=== PATIENT | female | born 1985 | race African-American/Black ===

== ENCOUNTER 2018-01-31 21:03 | Emergency (ER) | payer OTHER ==
--- NOTE | 2018-01-31 21:56 | RAD ---
PA AND LATERAL CHEST X-RAY: 01/31/2018 HISTORY: Productive cough and sore throat for two weeks. Generalized weakness and dizziness. Decreased appet ite. COMPARISON: 08/29/2017 FINDINGS: The cardiac silhouette and pulmonary vasculature are within normal limits. The lungs are clear. The osseous structures are intact. There has been no interval change from the prior exam. IMPRESSION: No acute cardiopulmonary process. POS: [facility]
== END 2018-01-31 22:15 | disposition home or self-care (01) ==
LOC: SCSER 21:03
DX: D57.3 Sickle-cell trait; F41.9 Anxiety disorder, unspecified; E28.2 Polycystic ovarian syndrome; J20.9 Acute bronchitis, unspecified; Z71.6 Tobacco abuse counseling; J45.909 Unspecified asthma, uncomplicated; Z79.899 Other long term (current) drug therapy; F17.210 Nicotine dependence, cigarettes, uncomplicated
CPT/HCPCS: 71046; 99406

== ENCOUNTER 2018-03-05 09:46 | Outpatient (CLI) | payer OTHER ==
--- NOTE | 2018-03-05 12:51 | RAD ---
HYSTEREOSALPINOGRAM: HISTORY: Infertility. The patient has had a history of a prior tubal ligation with reversal. This is to eval uate tube patency. FINDINGS: After informed consent was obtained, the patient was prepped in normal sterile fashion. A catheter w as introduced through the cervical os without difficulty. Contrast injected shows a normal triangula r-shaped uterus which has deviated slightly to the left and slightly anteverted. There is prompt kingston ling of both the fallopian tubes. The ampullary portion of the left tube is slightly serpiginous and borderline dilated, but there is free spillage from the left tube, somewhat delayed but definite onofre e spillage is also seen from the right tube. IMPRESSION: Free spillage from both tubes as described above. POS: [facility]
[2018-03-05] MEDS ORDERED: Iopamidol 300 61% 30 ML VIAL ONE (13:22)
== END 2018-03-05 09:47 | disposition home or self-care (01) ==
LOC: RAD 09:46
PROVIDERS: ATTEND Obstetrics & Gynecology
DX: N97.1 Female infertility of tubal origin (principal)
CPT/HCPCS: 58340; 74740

== ENCOUNTER 2018-06-19 10:29 | Observation (INO) | payer OTHER ==
[2018-06-19] MEDS ORDERED: Ketorolac Tromethamine 30 MG/ML VIAL ONE (11:13)
[2018-06-19 11:34] LABS: #Basophils 0.1 thou/uL (0.0-0.2); #Eosinphils 0.1 thou/uL (0.0-0.7); #Lymphocytes 1.9 thou/uL (1.20-3.40); #Monocytes 0.4 thou/uL (0.11-0.59); #Neutrophils 8.5 thou/uL (1.40-6.50); %Eosinophils 1.2 % (0.0-10.0); %Lymphocytes 16.9 % (21.0-51.0); %Monocytes 3.8 % (0.0-10.0); %Neutrophils 77.1 % (42.0-75.0); Hemoglobin 11.3 g/dL (12.0-16.0); Mean Corpuscular Hemoglobin 24.5 pg (27.0-31.0); Mean Corpuscular Volume 74.2 fL (78.0-98.0); Mean Platelet Volume 10.1 fL (7.4-10.4); Platelet Count 216 thou/uL (130-400); RBC Distribution Width 12.5 % (11.5-14.5); Red Blood Cell (RBC) Count 4.63 mill/uL (4.20-5.40)
[2018-06-19] MEDS ORDERED: Ondansetron HCl/PF 4 MG/2 ML Vial ONE (13:13)
[2018-06-19] MEDS ORDERED: Morphine 4 MG/ML VIAL ONE (13:13)
[2018-06-19 13:28] LABS: ALT (SGPT) 13 U/L (8-55); AST (SGOT) 18 U/L (5-34); Albumin 3.9 g/dL (3.5-5.0); Alkaline Phosphatase 57 U/L (40-150); Anion Gap 12 mmol/L (10-20); BUN (Urea Nitrogen) 6 mg/dL (7.0-18.7); Bilirubin, Total 0.2 mg/dL (0.2-1.2); Calc. Creatinine Clearance 0 mL/min (70-130); Calcium 8.9 mg/dL (7.8-10.44); Carbon Dioxide 21 mmol/L (22-29); Chloride 108 mmol/L (98-107); Estimated GFR-MDRD Greater than 90; Globulin 2.7 g/dL (2.4-3.5); Glucose 88 mg/dL (70-105); Potassium 3.6 mmol/L (3.5-5.1); Protein, Total 6.6 g/dL (6.0-8.3); Sodium 137 mmol/L (136-145)
[2018-06-19] MEDS ORDERED: Ondansetron HCl/PF 4 MG/2 ML Vial IVP PRN (14:15)
--- NOTE | 2018-06-19 14:16 | ULT ---
PELVIC ULTRASOUND: Transabdominal and endovaginal ultrasound of the pelvis performed. INDICATION: Pelvic pain. Recent ultrasound of 06/13/18 revealed evidence of a possible ectopic in the l eft adnexa. The patient is here for followup. FINDINGS: There continues to be free fluid/blood in the cul-de-sac. There continues to be abnormal echogenicit y in the left adnexa measuring approximately 4 x 6 cm. Ectopic remains the diagnosis of exclusion. Endometrial stripe remains mildly prominent measured at 8-10 mm. Ovaries are unremarkable and color Doppler with spectral analysis demonstrates blood flow to both ova nickolas. IMPRESSION: Continued abnormal echogenicity in the left adnexa. Free fluid/blood in the cul-de-sac. Positive HC G. Findings continue to be consistent with ectopic . POS: [facility]
[2018-06-19] MEDS ORDERED: diphenhydrAMINE 50 MG/ML VIAL IVP SCH (14:30)
[2018-06-19] MEDS ORDERED: hydrOXYzine 25 MG TAB PO PRN (14:37)
[2018-06-19] MEDS ORDERED: Lorazepam 1 MG TAB PO SCH (14:45)
[2018-06-19 15:33] VITALS: BMI 27.3
[2018-06-19 16:02] LABS: Hemoglobin 11.7 g/dL (12.0-16.0); Mean Corpuscular HGB CONC 32.9 g/dL (32.0-36.0); Mean Corpuscular Hemoglobin 24.3 pg (27.0-31.0); Mean Corpuscular Volume 73.8 fL (78.0-98.0); Mean Platelet Volume 9.7 fL (7.4-10.4); Platelet Count 228 thou/uL (130-400); RBC Distribution Width 12.8 % (11.5-14.5); Red Blood Cell (RBC) Count 4.83 mill/uL (4.20-5.40); White Blood Cell (WBC) Count 11.2 thou/uL (4.8-10.8)
[2018-06-19] MEDS ORDERED: traMADol HCl 50 MG TAB PO PRN (19:31)
[2018-06-19] MEDS ORDERED: Ibuprofen 800 MG TAB PO PRN (19:31)
[2018-06-19 20:36] VITALS: BP 106/70; TEMP 98.1
[2018-06-19 20:47] LABS: Hemoglobin 11.6 g/dL (12.0-16.0); Mean Corpuscular HGB CONC 33.1 g/dL (32.0-36.0); Mean Corpuscular Hemoglobin 24.4 pg (27.0-31.0); Mean Corpuscular Volume 73.7 fL (78.0-98.0); Mean Platelet Volume 9.9 fL (7.4-10.4); Platelet Count 219 thou/uL (130-400); RBC Distribution Width 12.6 % (11.5-14.5); Red Blood Cell (RBC) Count 4.74 mill/uL (4.20-5.40); White Blood Cell (WBC) Count 10.9 thou/uL (4.8-10.8)
--- NOTE | 2018-06-20 04:48 | DIS ---
DATE OF ENCOUNTER: 06/19/2018 DATE OF ADMISSION: 06/19/2018 DATE OF DISCHARGE: 06/19/2018 ADMITTING DIAGNOSIS: Ectopic with abdominal pain, status post methotrexate. DISCHARGE DIAGNOSIS: Ectopic with abdominal pain, status post methotrexate. PROCEDURE: None. CONSULTATIONS: None. HOSPITAL COURSE: Patient is a 33-year-old female who is day #1 status post methotrexate for medical management of a left tubal . Patient presents with abdominal pain. Upon my evaluation of t he patient in the emergency room, patient had normal vital signs. No peritoneal signs and just some point tenderness in the left adnexa. We discussed surgical versus expectant management and treatment for her pain with serial exams and serial CBCs. Patient opted for expectant management with serial exams, as patient strongly desires to keep her tubes. Through the course of the day, patient has had series of 3 CBC that have all been stable 11.3, 11.7, and 11.6. We have been able to manage her lianet n control with ibuprofen and tramadol. Patient strongly desires discharge this evening. During the course of the day at one point, patient had requested surgical management with removal of her left tu be; however, after reviewing the risks and benefits, patient declined to move forward with her surger y. Her primary OB, Dr. Jennifer Urbano has been involved are aware of the patient's situation and man agement. She has plans on seeing her on Thursday for quantitative HCG drawn and follow up. Vital sign s at the time of discharge, blood pressure 106/70, pulse of 62, temperature 98.1, respiratory rate of 18, satting 98% on room air. In general, she appears to be in no acute distress. She is alert and oriented, cooperative, and pleasant to interact with. Patient denies any pain at this time and is an xious to get home. Patient has follow up with Dr. Urbano on Thursday, which we have emphasized the imp ortance of keeping and which she has agreed to keep. Patient is going home with tramadol 50 mg #12 a nd ibuprofen 800 mg #12.
== END 2018-06-19 20:55 | disposition home or self-care (01) ==
LOC: ERS 10:29 → 3SE 14:33
PROVIDERS: ADMIT Obstetrics & Gynecology; ATTEND Obstetrics & Gynecology
DX: O00.102 Left tubal pregnancy without intrauterine pregnancy (principal)
CPT/HCPCS: 36415; 76856; 80053; 84702; 85025; 86850; 86900; 86901; 96374; 96375; 96376; A4216; G0378; J1200; J1885; J2270; J2405

== ENCOUNTER 2018-06-21 19:09 | Observation (INO) | payer OTHER ==
[2018-06-21] MEDS ORDERED: HYDROcodone/Acetaminophen 5/325 mg Tablet PO PRN ×2 (22:01)
[2018-06-21] MEDS ORDERED: Ondansetron HCl/PF 4 MG/2 ML Vial IVP PRN (22:01)
[2018-06-21] MEDS ORDERED: Zolpidem Tartrate 5 MG TAB PO PRN (22:01)
[2018-06-21] MEDS ORDERED: Famotidine/PF 20 mg/2ml Vial SLOW IVP SCH (22:15)
[2018-06-21 22:31] LABS: #Basophils 0.1 thou/uL (0.0-0.2); #Eosinphils 0.1 thou/uL (0.0-0.7); #Lymphocytes 3.1 thou/uL (1.20-3.40); #Monocytes 0.4 thou/uL (0.11-0.59); #Neutrophils 9.2 thou/uL (1.40-6.50); %Basophils 0.9 % (0.0-1.0); %Eosinophils 0.5 % (0.0-10.0); %Lymphocytes 23.8 % (21.0-51.0); %Monocytes 3.2 % (0.0-10.0); %Neutrophils 71.6 % (42.0-75.0); Hemoglobin 10.6 g/dL (12.0-16.0); Mean Corpuscular HGB CONC 33.7 g/dL (32.0-36.0); Mean Corpuscular Hemoglobin 24.4 pg (27.0-31.0); Mean Corpuscular Volume 72.5 fL (78.0-98.0); Mean Platelet Volume 9.8 fL (7.4-10.4); Platelet Count 228 thou/uL (130-400); RBC Distribution Width 12.3 % (11.5-14.5); Red Blood Cell (RBC) Count 4.35 mill/uL (4.20-5.40); White Blood Cell (WBC) Count 12.9 thou/uL (4.8-10.8)
[2018-06-21] MEDS: Sodium Chloride 0.9% 1,000 ML IV SCH (22:32)
--- NOTE | 2018-06-21 23:18 | HP ---
DATE OF ADMISSION: 06/21/2018 TIME OF SERVICE: 2245 hours. REASON FOR ADMISSION: Left ectopic status, post methotrexate with pain. HISTORY OF PRESENT ILLNESS: Ms. Mayorga is a 33-year-old 3, para 2, AB 0, who had a laparos copic BTL with [facility] by description in 2008 and had a tubal reversal in [facility], in February this year. She presented to [facility] [place] with early and some left-sided pain. Over the course of serial beta hCGs, they were noted to be plateauing with stable hematocrit a nd the diagnosis of left ectopic was made with an adnexal mass, no intrauterine , and a beta hCG of 1800. The patient was given the option for surgical management versus laparoscopic salpingectomy. She declined laparoscopic management at that time, approximately 4 days ago, and rec eived methotrexate at a single dose of 50 mg per meter square. She presented to this hospital over t weekend with pain that remained stable with stable vitals and unchanging hematocrit. She was disc harged home on Thursday. She presented to the office today for repeat beta hCG, which is pending. She did not report any pain at the office today, but instead presented to the [facility] where she reported pain. Ultrasound, as reported to me, from [facility] revealed a small a mount of free fluid consistent with her previous ultrasounds and consistent with 4-6 days post-methot rexate administration with no evidence of ruptured ectopic and a small amount of vaginal bleeding wit h ultrasound findings consistent with a decidual cast. She was transferred to this hospital for furt her care. 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 Denies STD history. PAST MEDICAL HISTORY: Denies. PAST SURGICAL HISTORY: Denies other than tubal ligation and reanastomosis. ALLERGIES: Denies. MEDICATIONS: None except methotrexate. SOCIAL HISTORY: Denies tobacco, alcohol, IV drug abuse. FAMILY HISTORY AND REVIEW OF SYSTEMS: Noncontributory. PHYSICAL EXAMINATION: GENERAL: Black female resting comfortably, despite stating that she has a 7/10 pain. VITAL SIGNS: Her pulse is 62, her respiratory rate is 18, her temperature is 98.1, her blood pressur e is 120/66. HEENT: Within normal limits. LUNGS: Clear to auscultation bilaterally. HEART: Regular rate and rhythm. ABDOMEN: Soft, nontender, nondistended with active bowel sounds in all 4 quadrants. She is distract able and does not have significant guarding or rebound. Vulva is without lesions. Vagina has a smal l amount of blood. Cervical exam is deferred. EXTREMITIES: Without clubbing, cyanosis, or edema. LABORATORY DATA: Hematocrit upon admission tonight is 31.6%, hematocrit has been between 34% and 35% on her previous admissions. The patient has received IV fluids at [facility]. Her white count i s 12.9, which is slightly over what she had over the weekend. Her blood type is O positive. IMPRESSION: Left lower quadrant pain with probable left ectopic , status post methotrexate administration. No evidence of significant hemoperitoneum or ruptured ectopic. PLAN: Discussed with the patient the options. The patient understands that surgery will lead to lap aroscopic salpingectomy. She understands this, and at this point in time desires to proceed forward with it. However, the patient has previously been admitted and been scheduled for surgery and has ch anged her mind. In addition, no signs or symptoms of emergent status is present at this time. We wi ll let the patient have clear liquids until 0300 hours. We will add the patient to the operating alana m schedule for tomorrow, which is full, and anticipate performing laparoscopic left salpingectomy paul orrow afternoon. OB Hospitalist, Dr. Nasra Duran, will be checked out to. This case has been discussed with Dr. Otis negron. Dr. Urbano is unavailable and out of town with a medical appointment tomorrow. We will check a CBC in the a.m.
[2018-06-22 00:10] VITALS: BMI 31.7
[2018-06-22 06:04] LABS: #Eosinphils 0.1 thou/uL (0.0-0.7); #Lymphocytes 2.9 thou/uL (1.20-3.40); #Monocytes 0.3 thou/uL (0.11-0.59); #Neutrophils 5.1 thou/uL (1.40-6.50); %Basophils 0.4 % (0.0-1.0); %Eosinophils 1.2 % (0.0-10.0); %Lymphocytes 33.9 % (21.0-51.0); %Monocytes 3.8 % (0.0-10.0); %Neutrophils 60.7 % (42.0-75.0); Hemoglobin 9.8 g/dL (12.0-16.0); Mean Corpuscular HGB CONC 32.4 g/dL (32.0-36.0); Mean Corpuscular Hemoglobin 23.7 pg (27.0-31.0); Mean Corpuscular Volume 73.1 fL (78.0-98.0); Mean Platelet Volume 9.8 fL (7.4-10.4); Platelet Count 214 thou/uL (130-400); RBC Distribution Width 12.4 % (11.5-14.5); Red Blood Cell (RBC) Count 4.12 mill/uL (4.20-5.40); White Blood Cell (WBC) Count 8.5 thou/uL (4.8-10.8)
--- NOTE | 2018-06-22 07:25 | PRG ---
DATE OF SERVICE: 06/22/2018 TIME OF SERVICE: 0705. SUBJECTIVE: The patient was resting comfortably in the bed. When awaken, she states that her pain i s a 1/10. OBJECTIVE: VITAL SIGNS: Stable with a pulse of 62, blood pressure 115/55, respirations 18, temperature 98.1. LUNGS: Clear to auscultation bilaterally. ABDOMEN: Soft, nontender, no rebound or guarding. She has a small amount of blood on her odessa-pad. EXTREMITIES: Without clubbing, cyanosis or edema. LABORATORY STUDIES: Patient's hematocrit is essentially stable at 30%. It was 31% upon admission night. The patient has been n.p.o. since 0300. ASSESSMENT: Known left ectopic , status post methotrexate administration. The patient appe ars stable and pain has improved. PLAN: Discussed with patient the options. The patient was offered a laparoscopic salpingectomy toda y; however, we discussed that with her low pain level that may be more appropriate, therapy is observ ation. The patient agreed with this. At this time, we will plan on getting an ultrasound later this morning and comparing it to her ultrasound over the weekend. We will leave the patient n.p.o. and w ill keep patient on add-on surgery scheduled for Dr. Duran for possible laparoscopic left salpingec artis.
[2018-06-22] MEDS: Sodium Chloride 0.9% 1,000 ML IV SCH (08:14)
[2018-06-22] MEDS ORDERED: Famotidine/PF 20 mg/2ml Vial SLOW IVP SCH (09:00)
[2018-06-22 10:08] VITALS: BP 127/75; TEMP 98.8
--- NOTE | 2018-06-22 11:53 | ULT ---
ULTRASOUND PELVIC WITH DOPPLER: Date: 06/22/18 HISTORY: Ectopic . Methotrexate. COMPARISON: Multiple prior ultrasounds, most recent 06/19/18. FINDINGS: Mild size increase of left adnexal mass. This may reflect a hemorrhage within an ectopic gi eulalio the methotrexate administration. Large volume free fluid in the pelvis. The uterus measures 8.8 x 4.4 x 4.9 cm. Endometrial thickness is 1.2 cm IMPRESSION: Mild size increase of the likely hemorrhagic ectopic left adnexa with continued large volum e fluid in the pelvic cul-de-sac. POS: [facility]
--- NOTE | 2018-06-22 13:38 | DIS ---
DATE OF ADMISSION: 06/21/2018 DATE OF DISCHARGE: 06/22/2018 DIAGNOSIS: Left ectopic , status post methotrexate. PROCEDURE: Pelvic ultrasound. HOSPITAL COURSE: The patient was admitted on 06/21/2018 after presenting with pain on day 4 followin g methotrexate administration. She was admitted for serial exams, repeat labs, and repeat ultrasound . Her exams, labs, and ultrasound remained stable and her pain improved to 1/10. She was given the option of surgery with a left salpingectomy versus continued expectant management. The patient had a tubal reversal prior to this and would like to continue expectant management at this time. DIET: Regular. ACTIVITIES: Pelvic rest until further notice. MEDICATIONS: The patient was given a prescription for Tylenol No. 3 one tab p.o. q.4-6 hours as need ed for pain, dispense #12. FOLLOWUP: [facility] [place] for repeat hCG level (day 7) on . INSTRUCTIONS: The patient was given strict precautions. She is still to avoid folate containing esequiel ds and supplements. She should return for significant worsening of pain or other concerns.
== END 2018-06-22 12:00 | disposition home or self-care (01) ==
LOC: 3SW 22:00
PROVIDERS: ADMIT Obstetrics & Gynecology; ATTEND Obstetrics & Gynecology
DX: O00.90 Unspecified ectopic pregnancy without intrauterine pregnancy (principal); Z98.890 Other specified postprocedural states; Z79.899 Other long term (current) drug therapy
CPT/HCPCS: 36415; 76856; 84702; 85025; 86850; 86900; 86901; 93976; 96361; 96374; 96376; A4216; G0378; S0028

== ENCOUNTER 2018-07-13 15:18 | Emergency (ER) | payer OTHER ==
[2018-07-13] MEDS ORDERED: Lorazepam 2 MG/ML VIAL ONE (16:27)
[2018-07-13] MEDS ORDERED: Lorazepam 1 MG TAB ONE (16:38)
[2018-07-13 16:43] LABS: BHCG - Serum POSITIVE (NEGATIVE); Pregs Control Background? CLEAR/WHITE (CLR/WHITE); Pregs Control Bar Appear? YES (CONTROL BAR)
[2018-07-13 16:50] LABS: INR-International Normal Ratio 1.2; PTT 33.6 SEC (22.9-36.1); Prothrombin Time 15.1 SEC (12.0-14.7)
[2018-07-13 16:51] LABS: #Basophils 0.1 thou/uL (0.0-0.2); #Eosinphils 0.1 thou/uL (0.0-0.7); #Lymphocytes 2.8 thou/uL (1.20-3.40); #Monocytes 0.4 thou/uL (0.11-0.59); #Neutrophils 6.2 thou/uL (1.40-6.50); %Basophils 1.1 % (0.0-1.0); %Eosinophils 0.8 % (0.0-10.0); %Lymphocytes 29.4 % (21.0-51.0); %Monocytes 4.4 % (0.0-10.0); %Neutrophils 64.4 % (42.0-75.0); Hemoglobin 12.5 g/dL (12.0-16.0); Mean Corpuscular HGB CONC 31.2 g/dL (32.0-36.0); Mean Corpuscular Hemoglobin 23.2 pg (27.0-31.0); Mean Corpuscular Volume 74.3 fL (78.0-98.0); Mean Platelet Volume 10.2 fL (7.4-10.4); Platelet Count 329 thou/uL (130-400); RBC Distribution Width 13.2 % (11.5-14.5); Red Blood Cell (RBC) Count 5.39 mill/uL (4.20-5.40); White Blood Cell (WBC) Count 9.6 thou/uL (4.8-10.8)
[2018-07-13 17:00] LABS: ALT (SGPT) 19 U/L (8-55); AST (SGOT) 20 U/L (5-34); Albumin 4.4 g/dL (3.5-5.0); Alkaline Phosphatase 64 U/L (40-150); Anion Gap 12 mmol/L (10-20); BUN (Urea Nitrogen) 10 mg/dL (7.0-18.7); Bilirubin, Total 0.4 mg/dL (0.2-1.2); Calc. Creatinine Clearance 0 mL/min (70-130); Calcium 9.5 mg/dL (7.8-10.44); Carbon Dioxide 22 mmol/L (22-29); Chloride 105 mmol/L (98-107); Estimated GFR-MDRD Greater than 90; Globulin 3.4 g/dL (2.4-3.5); Glucose 84 mg/dL (70-105); Potassium 4.1 mmol/L (3.5-5.1); Protein, Total 7.8 g/dL (6.0-8.3); Sodium 135 mmol/L (136-145)
== END 2018-07-13 18:46 | disposition home or self-care (01) ==
LOC: ERS 15:18
DX: N93.9 Abnormal uterine and vaginal bleeding, unspecified (principal); F41.9 Anxiety disorder, unspecified
CPT/HCPCS: 36415; 80053; 84702; 84703; 85025; 85610; 85730; 86850; 86900; 86901; 99284; J2060

== ENCOUNTER 2018-07-21 00:36 | Emergency (ER) | payer OTHER ==
[2018-07-21 01:17] LABS: Mean Corpuscular HGB CONC 32.3 g/dL (32.0-36.0); Mean Corpuscular Hemoglobin 23.8 pg (27.0-31.0); Mean Corpuscular Volume 73.9 fL (78.0-98.0); Mean Platelet Volume 10.5 fL (7.4-10.4); Platelet Count 274 thou/uL (130-400); RBC Distribution Width 12.9 % (11.5-14.5); Red Blood Cell (RBC) Count 4.63 mill/uL (4.20-5.40); White Blood Cell (WBC) Count 15.9 thou/uL (4.8-10.8)
[2018-07-21 01:32] LABS: Eosinophils 1 % (0-10); Hypochromia SLIGHT = 6-15 cells (100X) (0-5/hpf); Lymphocytes 14 % (21-51); MDiff Complete? YES; Monocytes 3 % (0-10); Neutrophil 82 % (42-75); PLT Morphology Comment Appears Adequate
[2018-07-21 01:38] LABS: ALT (SGPT) Less than 7 U/L (8-55); AST (SGOT) 14 U/L (5-34); Albumin 4.1 g/dL (3.5-5.0); Alkaline Phosphatase 61 U/L (40-150); Anion Gap 11 mmol/L (10-20); BUN (Urea Nitrogen) 12 mg/dL (7.0-18.7); Bilirubin, Total 0.3 mg/dL (0.2-1.2); CK (CPK) 93 U/L (29-168); Calc. Creatinine Clearance 0 mL/min (70-130); Calcium 9.2 mg/dL (7.8-10.44); Carbon Dioxide 21 mmol/L (22-29); Chloride 108 mmol/L (98-107); Estimated GFR-MDRD 84; Globulin 2.8 g/dL (2.4-3.5); Glucose 99 mg/dL (70-105); Potassium 3.8 mmol/L (3.5-5.1); Protein, Total 6.9 g/dL (6.0-8.3); Sodium 136 mmol/L (136-145)
[2018-07-21 01:42] LABS: CKMB 0.5 ng/mL (0-6.6); Troponin I Less than 0.010 ng/mL (< 0.028)
[2018-07-21 02:00] LABS: Bilirubin Negative (Negative); Blood, Urine Large (Negative); Clarity CLOUDY (Clear); Glucose, Urine (Dipstick) Negative (Negative); Leukocyte Moderate (Negative); Nitrite Negative (Negative); Protein, Urine (Dipstick) Trace mg/dL (Neg-Trace); Urobilinogen 0.2 mg/dL (0.2-1.0); pH, Urine 5.5 (5.0-9.0)
[2018-07-21 02:02] LABS: Bacteria/HPF None Seen HPF (None Seen); Hyaline Casts/LPF 4-6 HYALINE CAST LPF (0-3 Hyaline); Pathc Cast-AUWi Flag 0.58 (0-2.49); WBC/HPF 21-50 HPF (0-3)
[2018-07-21 02:06] LABS: Yeast-AUWi Flag 72.6 (0-25.0)
[2018-07-21 02:17] LABS: RBC/HPF 0-3 HPF (0-3); Yeast-All Forms None Seen HPF (None Seen)
--- NOTE | 2018-07-21 07:49 | RAD ---
AP VIEW CHEST: HISTORY: Chest pain. DATE: 07/21/18. COMPARISON: Comparison is made to previous exam from 08/29/17. FINDINGS: AP view chest demonstrates EKG leads seen over the chest. The lungs are well aerated. No evidence o f active intrathoracic disease is seen. No evidence of effusions, pneumonia, or pneumothorax seen. IMPRESSION: Unremarkable AP view chest. POS: [facility]
--- NOTE | 2018-07-21 17:09 | EKG ---
Test Reason : Blood Pressure : / mmHG Vent. Rate : 065 BPM Atrial Rate : 065 BPM P-R Int : 144 ms QRS Dur : 078 ms QT Int : 392 ms P-R-T Axes : 072 053 048 degrees QTc Int : 407 ms Normal sinus rhythm with sinus arrhythmia Normal ECG Confirmed by MELI AMARO, DR. Ahumada ([id number]) on 07/21/2018 5:09:31 PM Referred By: Confirmed By:DR. Zita GARRISON MD
== END 2018-07-21 02:57 | disposition home or self-care (01) ==
LOC: ERS 00:36
DX: F41.9 Anxiety disorder, unspecified (principal); N39.0 Urinary tract infection, site not specified; Z87.891 Personal history of nicotine dependence
CPT/HCPCS: 36415; 71045; 80053; 81003; 81015; 82553; 84484; 85025; 93005

== ENCOUNTER 2018-09-22 12:22 | Outpatient (CLI) | payer OTHER ==
[2018-09-22 13:58] LABS: BHCG - Serum Negative (NEGATIVE); Pregs Control Bar Appear? YES (CONTROL BAR)
[2018-09-22 13:59] LABS: Pregs Control Background? CLEAR/WHITE (CLR/WHITE)
--- NOTE | 2018-09-22 15:43 | RAD ---
HYSTEROSALPINGOGRAM: 09/22/18 HISTORY: 33-year-old female with history of infertility. Prior left sided ectopic. COMPARISON: 03/05/18. FINDINGS: Following informed consent, the patient was prepped in the usual sterile fashion. A catheter was int roduced through the cervical os. Contrast media was injected into a normal appearing uterine cavity. There was emptying into the right uterine tube which became dilated at approximately the mid portion of the uterine tube. There was some delayed free spillage on the right side. On the left side, only the first several centimeters of the left uterine tube were normal. The uterin e tube became dilated and there is no definite left sided free spillage. There may well be some locul ated spillage from the uterine tube versus an abnormal somewhat trabeculated markedly dilated distal tube although I favor this to be loculated spill. Uterine cavity appeared normal. IMPRESSION: Bilateral hydrosalpinx, greater on the left side. Delayed free spillage on the right side. No evidenc e of free spillage on the left side. There is an appearance suggesting that of some loculated contras t media emptying from the distal dilated tube versus a markedly dilated abnormal distal tube. POS: [facility]
== END 2018-09-22 12:23 | disposition home or self-care (01) ==
LOC: RAD 12:22
PROVIDERS: ATTEND Student in an Organized Health Care Education/Training Program
DX: Z31.41 Encounter for fertility testing (principal); N70.11 Chronic salpingitis
CPT/HCPCS: 58340; 74740; 84703

== ENCOUNTER 2018-11-09 04:48 | Emergency (ER) | payer OTHER ==
[2018-11-09] MEDS ORDERED: Ketorolac Tromethamine 60 MG/2 ML VIAL ONE (06:04)
[2018-11-09 06:36] LABS: Pregnancy Test - Urine (BHCG) Negative (Negative); Pregu Control Background? CLEAR/WHITE (CLR/WHITE); Pregu Control Bar Appear? YES (CONTROL BAR)
[2018-11-09 06:37] LABS: Bilirubin Negative (Negative); Blood, Urine Negative (Negative); Clarity CLEAR (Clear); Glucose, Urine (Dipstick) Negative (Negative); Leukocyte Negative (Negative); Nitrite Negative (Negative); Protein, Urine (Dipstick) Negative (Neg-Trace); Specific Gravity 1.009 (1.002-1.036); Specific Gravity, Urine 1.009 (1.002-1.036); Urobilinogen 0.2 mg/dL (0.2-1.0); pH, Urine 6.5 (5.0-9.0)
[2018-11-09] MEDS ORDERED: Acetaminophen/Codeine 30-300mg Tablet ONE (07:18)
--- NOTE | 2018-11-09 08:11 | CT ---
CT PELVIS NONCONTRAST: Date: 11/09/18 HISTORY: Fall. Pelvic injury. FINDINGS: The sacrum and hips are intact. Sacroiliac joints and pubic symphysis unremarkable. No displaced frac tures are evident. Lack of contrast limits evaluation of the soft tissues. No free fluid is apparent within the pelvis. IMPRESSION: No acute traumatic injury is demonstrated. POS: [facility]
--- NOTE | 2018-11-09 08:39 | CT ---
CT LUMBAR SPINE WITHOUT CONTRAST: History: Trauma. Pain. Status post fall while getting up to use the restroom this morning. FINDINGS: Five lumbar type vertebral bodies. Lumbar spine vertebral body height is maintained. There is no evid ence of vertebral body fracture. No spondylolisthesis or spondylosis. The limited visualized alimenta ry canal and solid organs are grossly unremarkable. No retroperitoneal mass, lymphadenopathy, or hematoma. Symmetric attenuation of the psoas muscles. Limited evaluation of the contents of the central spinal canal and neural foraminal due to technique. T12-L1: No significant central canal stenosis or foraminal narrowing. L1-2: No significant central canal stenosis or foraminal narrowing. L2-3: No significant central canal stenosis or foraminal narrowing. L3-4: No significant central canal stenosis or foraminal narrowing. L4-5: Generalized disc bulge. Minimal ligamentum flavum thickening resulting in minimal central canal stenosis. Neural foramina are patent. L5-S1: There is a generalized disc bulge with a small central disc protrusion. No significant spinal canal stenosis. Mild bilateral foraminal narrowing. IMPRESSION: No evidence of fracture. POS: [facility]
== END 2018-11-09 08:12 | disposition home or self-care (01) ==
LOC: ERS 04:48
DX: M54.5 Low back pain (principal); F41.9 Anxiety disorder, unspecified; F17.210 Nicotine dependence, cigarettes, uncomplicated; D57.00 Hb-SS disease with crisis, unspecified; Z71.6 Tobacco abuse counseling
CPT/HCPCS: 72131; 72192; 81003; 81025; 87086; 96372; 99406; J1885

== ENCOUNTER 2019-01-07 12:03 | Emergency (ER) | payer OTHER ==
[2019-01-07] MEDS ORDERED: Lorazepam 1 MG TAB ONE (13:18)
== END 2019-01-07 13:25 | disposition home or self-care (01) ==
LOC: ERS 12:03
DX: F43.9 Reaction to severe stress, unspecified (principal); Z71.6 Tobacco abuse counseling; F41.9 Anxiety disorder, unspecified; F17.210 Nicotine dependence, cigarettes, uncomplicated
CPT/HCPCS: 99406

== ENCOUNTER 2019-06-03 09:22 | Day surgery (SDC) | payer OTHER ==
[2019-06-02 10:56] VITALS: BMI 32.1
[2019-06-02 12:23] LABS: Hemoglobin 12.5 g/dL (12.0-16.0); Mean Corpuscular HGB CONC 33.5 g/dL (32.0-36.0); Mean Corpuscular Hemoglobin 24.4 pg (27.0-31.0); Mean Platelet Volume 10.6 fL (7.4-10.4); Platelet Count 252 thou/uL (130-400); RBC Distribution Width 12.9 % (11.5-14.5); Red Blood Cell (RBC) Count 5.13 mill/uL (4.20-5.40); White Blood Cell (WBC) Count 11.2 thou/uL (4.8-10.8)
[2019-06-02 12:28] LABS: BHCG - Serum Negative (NEGATIVE); Pregs Control Background? CLEAR/WHITE (CLR/WHITE); Pregs Control Bar Appear? YES (CONTROL BAR)
[2019-06-03] MEDS ORDERED: Gabapentin 300 MG CAP ONE (10:27)
[2019-06-03] MEDS ORDERED: ceFAZolin Sodium (SDC) 2 GM/100 ML BAG ONE (10:27)
[2019-06-03] MEDS ORDERED: CeleCOXIB 100 MG CAP ONE (10:27)
[2019-06-03] MEDS ORDERED: Famotidine/PF 20 mg/2ml Vial ONE (10:27)
[2019-06-03] MEDS ORDERED: Bupivacaine HCl 0.5%/Epinephrine 1:200,000/PF 30 ml Vial ONE (11:56)
[2019-06-03] MEDS ORDERED: Midazolam HCl 2 mg/2 ml Vial ONE (11:58)
[2019-06-03] MEDS ORDERED: Fentanyl 250 MCG/5 ML VIAL ONE (12:03)
[2019-06-03] MEDS ORDERED: Fentanyl 100 MCG/2 ML VIAL ONE (14:23)
[2019-06-03] MEDS ORDERED: HYDROcodone/Acetaminophen 5/325 mg Tablet ONE (16:03)
--- NOTE | 2019-06-03 16:54 | OP ---
DATE OF PROCEDURE: 06/03/2019 PREOPERATIVE DIAGNOSIS: Left hydrosalpinx. POSTOPERATIVE DIAGNOSES: 1. Left hydrosalpinx. 2. Blocked right fallopian tube. PROCEDURES PERFORMED: Diagnostic laparoscopy, left salpingectomy, and chromotubation. ANESTHESIA: General endotracheal. SALES REPRESENTATIVES SURGEON: None. ESTIMATED BLOOD LOSS: 5 mL. IVF: 1 L of crystalloid. URINE OUTPUT: 200 mL clear urine. PATHOLOGY: Left fallopian tube. COMPLICATIONS: None. DRAINS: None. FINDINGS: Normal size uterus sounded to 8 cm, normal uterine contours, normal appearing cervix. Bilateral ovaries were normal appearing. The right fallopian tube was normal appearing initially; however, on chromotubation, the right fallopian tube did not demonstrate any spillage of blue dye. The left fallopian tube was matted in adhesions and filled with blood. The cul-de-sac and pelvic sidewalls were within normal limits. The upper abdomen was within normal limits as well. DESCRIPTION OF PROCEDURE: The patient was taken to the operating room, where general anesthesia was obtained without difficulty. The patient was prepped and draped in a sterile fashion in the dorsal lithotomy position. A Baird catheter was placed in the bladder. A speculum was placed in the vagina. Anterior lip of the cervix was grasped with single-tooth tenaculum. The uterus was sounded to 8 cm and the diagnostic VCare was placed in the uterus at 7 cm. The speculum was removed. Legs were placed in low lithotomy. Attention was turned to the abdomen. 0.5% Marcaine with epinephrine was infiltrated into the umbilicus. A 5 mm skin incision was made. The Veress needle was passed to the abdomen, noting an opening pressure of 4 mmHg. Pneumoperitoneum was obtained. The 5 mm trocar and camera were passed into the abdomen optically. Deep Trendelenburg was obtained. An 8 mm left lower quadrant port was placed under direct visualization after infiltrating with 0.5% Marcaine with epinephrine and making skin incision. Right lower quadrant 5 mm port was also placed under direct visualization after infiltrating the skin with anesthetic. A grasper was then used to examine the pelvis and upper abdomen and pictures were taken. The LigaSure was then used to come across the left fallopian tube and transect the mesosalpinx with cautery. Hemostasis was noted. A 5 mm bag was passed through the 8 port and the specimen was placed into the bag. At this time, the methylene blue was diluted with saline and tubing was connected to the diagnostic VCare. Chromotubation was performed. 100 mL of dilute methylene blue was used to pass into the uterus. The right fallopian tube was noted to swell with the blue dye. However, the distal-most portion of the fallopian tube was blocked likely with adhesions from the patient's prior tubal surgery. Upon even squeezing the fallopian tube and allowing delayed spillage, there was no spillage of the dye during that time after careful examination. The pelvis was then irrigated and suctioned. A low-pressure check was performed. Hemostasis was noted. The bag was then removed out of the abdomen through the 8 port and all instruments removed out of the abdomen. Pneumoperitoneum was released. The skin was closed with 4-0 Monocryl in a subcuticular fashion. Dermabond was applied. The diagnostic VCare was removed out of the vagina and hemostasis was noted. All instruments were removed out of the vagina. The patient tolerated the procedure well. Sponge and needle counts correct x2. The patient was taken to recovery room in stable condition. The patient had a Baird discontinued prior to procedure conclusion and received Ancef 2 g prior to the procedure. Job ID: [id number]
== END 2019-06-03 16:55 | disposition home or self-care (01) ==
LOC: SDC 09:22
PROVIDERS: ATTEND Student in an Organized Health Care Education/Training Program
PROC: 0UT64ZZ Resection of Left Fallopian Tube, Percutaneous Endoscopic Approach (ICD-10-PCS; principal; 2019-06-03)
DX: N70.11 Chronic salpingitis (principal); Z87.891 Personal history of nicotine dependence
CPT/HCPCS: 84703; 85027; 86850; 86900; 86901; 88305; J0131; J0670; J0690; J2250; J3010; Q9968; S0028

== ENCOUNTER 2019-06-21 17:10 | Emergency (ER) | payer OTHER ==
[~2019-06-21 17:10] MED LIST: ISOVUE-370 76%-LOCM 1 ML ONE
[2019-06-21] MEDS ORDERED: Ketorolac Tromethamine 30 MG/ML VIAL ONE (17:34)
--- NOTE | 2019-06-21 19:02 | CT ---
CT Neck Soft Tissue W Con History: Mass in neck. Comparison: None. Findings: Globes are normal. Trachea is midline. No extrinsic mass effect. Epiglottis is normal. Aryepiglottic folds are normal. Mild hyperenhancement of the nasopharyngeal tonsils with mucous blocking the nasopharyngeal passagewa y. No cervical adenopathy. Lung apices are clear. Impression: Mild hyperenhancement of the inflamed nasopharyngeal tonsils with mucous blocking the aguilar opharyngeal airway. No palate seen tonsil abscess.
== END 2019-06-21 20:03 | disposition left against medical advice (07) ==
LOC: ERS 17:10
DX: R07.0 Pain in throat (principal); F17.210 Nicotine dependence, cigarettes, uncomplicated
CPT/HCPCS: 70491; 96374; J1885; Q9966

== ENCOUNTER 2019-06-30 07:41 | Outpatient (CLI) | payer OTHER ==
--- NOTE | 2019-06-30 09:13 | ULT ---
THYROID ULTRASOUND: Date: 06/30/19 INDICATION: Goiter. FINDINGS: Several small, subcentimeter nodules, cystic and solid, are seen within the bilateral thyroid lobes, without a suspicious dominant nodule otherwise demonstrated. Largest nodule is approximately 5.0 x 8. 0 mm within the mid to lower portion of right thyroid lobe. The right thyroid lobe measures 4.9 cm in length, left thyroid lobe 5.3 cm in length, and the isthmus is approximately 3.0 mm in thickness. IMPRESSION: Several small, subcentimeter thyroid nodules without a dominant suspicious nodule otherwise depicted. POS: [facility]
== END 2019-06-30 07:42 | disposition home or self-care (01) ==
LOC: BICULT 07:41
PROVIDERS: ATTEND Student in an Organized Health Care Education/Training Program
DX: E04.9 Nontoxic goiter, unspecified (principal); E04.2 Nontoxic multinodular goiter
CPT/HCPCS: 76536

== ENCOUNTER 2020-01-25 19:01 | Emergency (ER) | payer OTHER ==
[2020-01-25] MEDS ORDERED: Lidocaine 1% PF 5 ML VIAL ONE (19:08)
[2020-01-25] MEDS ORDERED: Adacel (T-DAP) 0.5 ML SYRINGE ONE (19:08)
[2020-01-25] MEDS ORDERED: Lidocaine 1% w/Epinephrine 1:100K 20 ML VIAL ONE (19:10)
[2020-01-25] MEDS ORDERED: HYDROcodone/Acetaminophen 5/325 mg Tablet ONE (19:36)
[2020-01-25] MEDS ORDERED: Bacitracin 1 PK ONE (19:36)
== END 2020-01-25 19:42 | disposition home or self-care (01) ==
LOC: ERS 19:01
DX: S51.812A Laceration without foreign body of left forearm, initial encounter (principal); F41.9 Anxiety disorder, unspecified; Z23 Encounter for immunization; F17.210 Nicotine dependence, cigarettes, uncomplicated; W26.8XXA Contact with other sharp object(s), not elsewhere classified, initial encounter
CPT/HCPCS: 12002; 90471; 90715; J2001

== ENCOUNTER 2020-11-04 07:57 | Emergency (ER) | payer OTHER ==
[2020-11-04 08:21] LABS: Bacteria/HPF None Seen HPF (None Seen); Bilirubin Negative (Negative); Blood, Urine Trace (Negative); Clarity Clear (Clear); Glucose, Urine (Dipstick) Normal (Negative); Ketone, Urine Negative (Negative); Leukocyte 500 Leu/uL (Negative); Nitrite Negative (Negative); Protein, Urine (Dipstick) Negative (Neg-Trace); Specific Gravity, Urine 1.018 (1.002-1.036); Urobilinogen Normal mg/dL (Less than 2)
[2020-11-04] MEDS ORDERED: Ondansetron ODT 4 MG TAB ONE (08:27)
[2020-11-04] MEDS ORDERED: Acetaminophen 500 MG TAB ONE (08:27)
[2020-11-04 08:52] LABS: BHCG - Serum Negative (NEGATIVE); Pregs Control Background? CLEAR/WHITE (CLR/WHITE); Pregs Control Bar Appear? YES (CONTROL BAR)
[2020-11-04 09:03] LABS: ALT (SGPT) 7 U/L (8-55); AST (SGOT) 15 U/L (5-34); Alkaline Phosphatase 61 U/L (40-110); Anion Gap 12 mmol/L (10-20); BUN (Urea Nitrogen) 12 mg/dL (7.0-18.7); Bilirubin, Total 0.3 mg/dL (0.2-1.2); Calc. Creatinine Clearance 0 mL/min (70-130); Carbon Dioxide 23 mmol/L (22-29); Chloride 107 mmol/L (98-107); Globulin 3.1 g/dL (2.4-3.5); Glucose 92 mg/dL (70-105); Potassium 4.6 mmol/L (3.5-5.1); Protein, Total 7.1 g/dL (6.0-8.3); Sodium 137 mmol/L (136-145)
[2020-11-04 09:04] LABS: Hemoglobin 12.3 g/dL (12.0-16.0); Mean Corpuscular HGB CONC 32.1 g/dL (32.0-36.0); Mean Corpuscular Hemoglobin 23.8 pg (27.0-31.0); Mean Corpuscular Volume 74.3 fL (78.0-98.0); Mean Platelet Volume 10.1 fL (7.4-10.4); Platelet Count 272 thou/uL (130-400); RBC Distribution Width 12.7 % (11.5-14.5); Red Blood Cell (RBC) Count 5.18 mill/uL (4.20-5.40); White Blood Cell (WBC) Count 11.1 thou/uL (4.8-10.8)
[2020-11-04 09:05] LABS: #Basophils 0.1 thou/uL (0.0-0.2); #Eosinphils 0.1 thou/uL (0.0-0.7); #Lymphocytes 3.1 thou/uL (1.20-3.40); #Monocytes 0.4 thou/uL (0.11-0.59); #Neutrophils 7.4 thou/uL (1.40-6.50); %Basophils 0.8 % (0.0-1.0); %Eosinophils 1.2 % (0.0-10.0); %Lymphocytes 27.8 % (21.0-51.0); %Monocytes 3.5 % (0.0-10.0); %Neutrophils 66.7 % (42.0-75.0)
[2020-11-04 09:27] LABS: Anisocytosis SLIGHT = 6-15 cells (100X) (0-5/hpf); Large Platelets SLIGHT; MDiff Complete? YES; Microcytosis SLIGHT = 6-15 cells (100X) (0-5/hpf); Ovalocytes SLIGHT = 2-5 cells (100X) (0-1/hpf); Platelet Morphology Comment Appears Adequate; Polychromasia SLIGHT = 2-3 cells (100X) (0-2/hpf)
[2020-11-06 21:40] LABS: Chlamydia by PCR Not Detected (NotDetected); GC by PCR DETECTED (NotDetected)
== END 2020-11-04 10:00 | disposition home or self-care (01) ==
LOC: ERS 07:57
DX: R10.30 Lower abdominal pain, unspecified (principal); N89.8 Other specified noninflammatory disorders of vagina; F17.210 Nicotine dependence, cigarettes, uncomplicated
CPT/HCPCS: 36415; 80053; 81003; 81015; 84703; 85025; 87086; 87480; 87491; 87510; 87591; 87660; 99284; Q0162

== ENCOUNTER 2021-04-18 04:01 | Emergency (ER) | payer OTHER | END 2021-04-18 04:55 | disposition home or self-care (01) | LOC: ERS 04:01 | DX: S81.812A Laceration without foreign body, left lower leg, initial encounter (principal); S80.212A Abrasion, left knee, initial encounter; F17.210 Nicotine dependence, cigarettes, uncomplicated; W01.0XXA Fall on same level from slipping, tripping and stumbling without subsequent striking against object, initial encounter | CPT/HCPCS: 12001 ==

== ENCOUNTER 2021-04-23 07:46 | Outpatient (CLI) | payer OTHER | END 2021-04-23 07:47 | disposition home or self-care (01) | LOC: BICMAMMO 07:46 | PROVIDERS: ATTEND Student in an Organized Health Care Education/Training Program | DX: N64.4 Mastodynia (principal); N64.52 Nipple discharge | CPT/HCPCS: 77066; G0279 ==

== ENCOUNTER 2021-06-03 06:07 | Emergency (ER) | payer OTHER ==
[2021-06-03] MEDS ORDERED: Ketorolac Tromethamine 30 MG/ML VIAL ONE (06:27)
[2021-06-03] MEDS ORDERED: Albuterol 200 PUFF (6.7GM INHALER) ONE (06:43)
[2021-06-03 14:40] LABS: SARS-CoV-2 PCR by NAA Not Detected (NotDetected)
== END 2021-06-03 06:55 | disposition home or self-care (01) ==
LOC: ERS 06:07
DX: R05 Cough (principal); D57.1 Sickle-cell disease without crisis; F17.210 Nicotine dependence, cigarettes, uncomplicated; Z20.822 Contact with and (suspected) exposure to COVID-19
CPT/HCPCS: 94664; 96372; J1885; U0003; U0005

== ENCOUNTER 2021-06-18 01:29 | Emergency (ER) | payer OTHER | END 2021-06-18 02:43 | disposition left against medical advice (07) | LOC: ERS 01:29 | DX: Z53.21 Procedure and treatment not carried out due to patient leaving prior to being seen by health care provider (principal) ==

== ENCOUNTER 2021-08-21 12:28 | Emergency (ER) | payer OTHER ==
[2021-08-21 13:09] LABS: #Basophils 0.1 thou/uL (0.0-0.2); #Eosinphils 0.1 thou/uL (0.0-0.7); #Lymphocytes 3.1 thou/uL (1.20-3.40); #Monocytes 0.5 thou/uL (0.11-0.59); #Neutrophils 9.8 thou/uL (1.40-6.50); %Basophils 1.1 % (0.0-1.0); %Eosinophils 0.6 % (0.0-10.0); %Lymphocytes 22.6 % (21.0-51.0); %Monocytes 3.3 % (0.0-10.0); %Neutrophils 72.3 % (42.0-75.0); Hemoglobin 12.6 g/dL (12.0-16.0); Mean Corpuscular HGB CONC 32.9 g/dL (32.0-36.0); Mean Corpuscular Hemoglobin 24.4 pg (27.0-31.0); Mean Corpuscular Volume 74.2 fL (78.0-98.0); Mean Platelet Volume 10.6 fL (7.4-10.4); Platelet Count 285 thou/uL (130-400); RBC Distribution Width 13.3 % (11.5-14.5); Red Blood Cell (RBC) Count 5.16 mill/uL (4.20-5.40); White Blood Cell (WBC) Count 13.6 thou/uL (4.8-10.8)
[2021-08-21 13:26] LABS: ALT (SGPT) 8 U/L (8-55); AST (SGOT) 13 U/L (5-34); Albumin 4.1 g/dL (3.5-5.0); Alkaline Phosphatase 64 U/L (40-110); Anion Gap 10 mmol/L (10-20); BUN (Urea Nitrogen) 9 mg/dL (7.0-18.7); Bilirubin, Total 0.5 mg/dL (0.2-1.2); Calc. Creatinine Clearance 0 mL/min (70-130); Calcium 9.8 mg/dL (7.8-10.44); Carbon Dioxide 25 mmol/L (22-29); Chloride 107 mmol/L (98-107); Globulin 3.1 g/dL (2.4-3.5); Glucose 91 mg/dL (70-105); Potassium 4.1 mmol/L (3.5-5.1); Protein, Total 7.2 g/dL (6.0-8.3); Sodium 138 mmol/L (136-145)
[2021-08-21 13:29] LABS: MDiff Complete? YES; Microcytosis SLIGHT = 6-15 cells (100X) (0-5/hpf); Platelet Morphology Comment Appears Adequate; Polychromasia SLIGHT = 2-3 cells (100X) (0-2/hpf); Target Cells MODERATE= 6-15 cells (100X) (0-1/hpf); Tear Drops SLIGHT = 2-5 cells (100X) (0-1/hpf)
[2021-08-21 13:33] LABS: Bilirubin Negative (Negative); Blood, Urine Negative (Negative); Clarity Clear (Clear); Glucose, Urine (Dipstick) Normal (Negative); Ketone, Urine Negative (Negative); Leukocyte 250 Leu/uL (Negative); Nitrite Negative (Negative); Protein, Urine (Dipstick) Negative (Neg-Trace); RBC/HPF 0-3 HPF (0-3); Specific Gravity, Urine 1.016 (1.002-1.036); Urobilinogen Normal mg/dL (Less than 2); pH, Urine 5.5 (5.0-9.0)
[2021-08-21 13:35] LABS: Bacteria/HPF 1+ HPF (None Seen); Pregnancy Test - Urine (BHCG) POSITIVE (Negative); Pregu Control Background? CLEAR/WHITE (CLR/WHITE); Pregu Control Bar Appear? YES (CONTROL BAR); Specific Gravity 1.016 (1.002-1.036)
== END 2021-08-21 16:17 | disposition home or self-care (01) ==
LOC: ERS 12:28
DX: O23.11 Infections of bladder in pregnancy, first trimester (principal); N30.00 Acute cystitis without hematuria
CPT/HCPCS: 36415; 76856; 80053; 81003; 81015; 81025; 84702; 85025; 87086; J0500

== ENCOUNTER 2021-11-10 16:35 | Emergency (ER) | payer OTHER | END 2021-11-10 19:44 | disposition left against medical advice (07) | LOC: ERS 16:35 | DX: Z53.21 Procedure and treatment not carried out due to patient leaving prior to being seen by health care provider (principal) ==

== ENCOUNTER 2021-12-09 04:33 | Emergency (ER) | payer OTHER ==
[2021-12-09 05:21] LABS: Pregnancy Test - Urine (BHCG) Negative (Negative); Pregu Control Background? CLEAR/WHITE (CLR/WHITE); Pregu Control Bar Appear? YES (CONTROL BAR)
[2021-12-09 05:22] LABS: Bacteria/HPF None Seen HPF (None Seen); Bilirubin Negative (Negative); Blood, Urine Trace (Negative); Clarity Clear (Clear); Glucose, Urine (Dipstick) Normal (Negative); Ketone, Urine Negative (Negative); Leukocyte 75 Leu/uL (Negative); Nitrite Negative (Negative); Protein, Urine (Dipstick) Negative (Neg-Trace); RBC/HPF 0-3 HPF (0-3); Specific Gravity 1.024 (1.002-1.036); Specific Gravity, Urine 1.024 (1.002-1.036); Urobilinogen Normal mg/dL (Less than 2); pH, Urine 5.5 (5.0-9.0)
[2021-12-09] MEDS ORDERED: Lidocaine 1% PF 5 ML VIAL ONE (06:30)
[2021-12-09] MEDS ORDERED: Azithromycin 250 MG TAB ONE ×2 (06:30→06:37)
[2021-12-09] MEDS ORDERED: cefTRIAXone\\ROCEPHIN 500 MG VIAL ONE (06:30)
[2021-12-09 17:30] LABS: Chlamydia by PCR Not Detected (NotDetected); GC by PCR Not Detected (NotDetected)
== END 2021-12-09 06:41 | disposition home or self-care (01) ==
LOC: ERS 04:33
DX: N89.8 Other specified noninflammatory disorders of vagina (principal)
CPT/HCPCS: 81003; 81015; 81025; 87086; 87480; 87491; 87510; 87591; 87660; 96372; 99283; J0696

== ENCOUNTER 2022-01-24 23:32 | Emergency (ER) | payer BC, OTHER ==
[2022-01-25 01:53] LABS: Bacteria/HPF 1+ HPF (None Seen); Bilirubin Negative (Negative); Blood, Urine Trace (Negative); Clarity Turbid (Clear); Glucose, Urine (Dipstick) Normal (Negative); Ketone, Urine Negative (Negative); Leukocyte 25 Leu/uL (Negative); Nitrite Negative (Negative); Pregnancy Test - Urine (BHCG) Negative (Negative); Pregu Control Background? CLEAR/WHITE (CLR/WHITE); Pregu Control Bar Appear? YES (CONTROL BAR); Protein, Urine (Dipstick) Negative (Neg-Trace); RBC/HPF 0-3 HPF (0-3); Specific Gravity 1.023 (1.002-1.036); Specific Gravity, Urine 1.023 (1.002-1.036); Squamous Epithelial 21-50 HPF (0-3); Urobilinogen Normal mg/dL (Less than 2); WBC/HPF 0-3 HPF (0-3); pH, Urine 5.5 (5.0-9.0)
== END 2022-01-25 02:28 | disposition home or self-care (01) ==
LOC: ERS 23:32
DX: N89.8 Other specified noninflammatory disorders of vagina (principal)
CPT/HCPCS: 81003; 81015; 81025; 87480; 87510; 87660; 99283

== ENCOUNTER 2022-03-21 06:32 | Emergency (ER) | payer BC, OTHER ==
[2022-03-21] MEDS ORDERED: Dexamethasone 10 MG/ML VIAL ONE (07:14)
== END 2022-03-21 07:36 | disposition home or self-care (01) ==
LOC: ERS 06:32
DX: J06.9 Acute upper respiratory infection, unspecified (principal); Z20.822 Contact with and (suspected) exposure to COVID-19
CPT/HCPCS: 99283; J1100

== ENCOUNTER 2022-03-31 06:52 | Emergency (ER) | payer BC, OTHER ==
[2022-03-31 08:09] LABS: Bacteria/HPF None Seen HPF (None Seen); RBC/HPF 0-3 HPF (0-3); WBC/HPF 0-3 HPF (0-3)
[2022-03-31 08:10] LABS: Clarity Clear (Clear); Specific Gravity, Urine 1.017 (1.002-1.036); pH, Urine 6.5 (5.0-9.0)
[2022-03-31 08:11] LABS: Bilirubin Negative (Negative); Blood, Urine Trace (Negative); Glucose, Urine (Dipstick) Normal (Negative); Ketone, Urine Negative (Negative); Leukocyte Negative Leu/uL (Negative); Nitrite Negative (Negative); Protein, Urine (Dipstick) Negative (Neg-Trace); Urobilinogen Normal mg/dL (Less than 2)
== END 2022-03-31 08:50 | disposition left against medical advice (07) ==
LOC: ERS 06:52
DX: Z53.21 Procedure and treatment not carried out due to patient leaving prior to being seen by health care provider (principal)
CPT/HCPCS: 81003; 81015; 94760

== ENCOUNTER 2022-12-15 07:20 | Emergency (ER) | payer BC, OTHER ==
[2022-12-15 07:39] LABS: #Eosinphils 0.2 thou/uL (0.0-0.7); #Lymphocytes 3.1 thou/uL (1.20-3.40); #Monocytes 0.5 thou/uL (0.11-0.59); #Neutrophils 5.1 thou/uL (1.40-6.50); %Basophils 0.5 % (0.0-1.0); %Eosinophils 1.8 % (0.0-10.0); %Lymphocytes 34.8 % (21.0-51.0); %Monocytes 5.2 % (0.0-10.0); %Neutrophils 57.8 % (42.0-75.0); Hemoglobin 11.9 g/dL (12.0-16.0); Mean Corpuscular HGB CONC 33.2 g/dL (32.0-36.0); Mean Corpuscular Hemoglobin 24.8 pg (27.0-31.0); Mean Corpuscular Volume 74.8 fl (78.0-98.0); Mean Platelet Volume 10.3 fL (7.4-10.4); Platelet Count 267 10x3/uL (130-400); RBC Distribution Width 12.8 % (11.5-14.5); Red Blood Cell (RBC) Count 4.81 mill/uL (4.20-5.40); White Blood Cell (WBC) Count 8.9 10x3/uL (4.8-10.8)
[2022-12-15] MEDS ORDERED: Ketorolac Tromethamine 30 MG/ML VIAL ONE (08:00)
[2022-12-15 08:04] LABS: ALT (SGPT) 11 U/L (8-55); AST (SGOT) 14 U/L (5-34); Alkaline Phosphatase 63 U/L (40-110); Anion Gap 13 mmol/L (10-20); BUN (Urea Nitrogen) 11 mg/dL (7.0-18.7); Bilirubin, Total 0.2 mg/dL (0.2-1.2); CK (CPK) 112 U/L (29-168); Calc. Creatinine Clearance 0 mL/min (70-130); Calcium 9.2 mg/dL (7.8-10.44); Carbon Dioxide 21 mmol/L (22-29); Chloride 108 mmol/L (98-107); Estimated GFR 96; Globulin 2.6 g/dL (2.4-3.5); Glucose 96 mg/dL (70-105); Lipase 39 U/L (8-78); Potassium 4.5 mmol/L (3.5-5.1); Protein, Total 6.6 g/dL (6.0-8.3); Sodium 137 mmol/L (136-145)
[2022-12-15 08:15] LABS: MDiff Complete? YES; Microcytosis SLIGHT = 6-15 cells (100X) (0-5/hpf); Ovalocytes SLIGHT = 2-5 cells (100X) (0-1/hpf); Platelet Morphology Comment Appears Adequate; Polychromasia SLIGHT = 2-3 cells (100X) (0-2/hpf)
[2022-12-15 08:41] LABS: BHCG - Serum Negative (NEGATIVE); Pregs Control Background? CLEAR/WHITE (CLR/WHITE); Pregs Control Bar Appear? YES (CONTROL BAR)
== END 2022-12-15 08:33 | disposition home or self-care (01) ==
LOC: ERS 07:20
DX: R09.1 Pleurisy (principal)
CPT/HCPCS: 36415; 71045; 80053; 82550; 83690; 84484; 84703; 85025; 93005; 96372; J1885

== ENCOUNTER 2023-01-31 16:41 | Emergency (ER) | payer OTHER ==
[2023-01-31 17:27] LABS: Bacteria/HPF 1+ HPF (None Seen); Bilirubin Negative (Negative); Blood, Urine Trace (Negative); Clarity Clear (Clear); Glucose, Urine (Dipstick) Normal (Negative); Ketone, Urine Negative (Negative); Leukocyte 25 Leu/uL (Negative); Nitrite Negative (Negative); Pregnancy Test - Urine (BHCG) Negative (Negative); Protein, Urine (Dipstick) 20 mg/dL (Neg-Trace); RBC/HPF 0-3 HPF (0-3); Specific Gravity, Urine 1.024 (1.002-1.036); Squamous Epithelial 0-3 HPF (0-3); WBC/HPF 0-3 HPF (0-3); pH, Urine 5.5 (5.0-9.0)
[2023-01-31 17:28] LABS: Pregu Control Background? CLEAR/WHITE (CLR/WHITE); Pregu Control Bar Appear? YES (CONTROL BAR); Specific Gravity 1.024 (1.002-1.036)
[2023-01-31 17:30] LABS: Amphetamine Not Detected (NotDetected); Barbiturates Screen Not Detected (NotDetected); Benzodiazepine Screen Not Detected (NotDetected); Cocaine Metabolite Screen Not Detected (NotDetected); Methadone Not Detected (NotDetected); Methamphetamine Not Detected (NotDetected); Opiate Screen Detected (NotDetected); Oxycodone Screen Not Detected (NotDetected); Phencyclidine (PCP) Not Detected (NotDetected); THC/Cannabinoid Screen Detected (NotDetected); Tricyclic Screen Not Detected (NotDetected)
[2023-01-31 17:34] LABS: #Basophils 0.1 thou/uL (0.0-0.2); #Lymphocytes 2.5 thou/uL (1.20-3.40); #Monocytes 0.6 thou/uL (0.11-0.59); #Neutrophils 12.7 thou/uL (1.40-6.50); %Basophils 0.9 % (0.0-1.0); %Eosinophils 0.3 % (0.0-10.0); %Lymphocytes 15.7 % (21.0-51.0); %Monocytes 3.8 % (0.0-10.0); %Neutrophils 79.3 % (42.0-75.0); Hemoglobin 12.7 g/dL (12.0-16.0); Mean Corpuscular Hemoglobin 25.4 pg (27.0-31.0); Mean Corpuscular Volume 74.6 fl (78.0-98.0); Mean Platelet Volume 10.8 fL (7.4-10.4); Platelet Count 268 10x3/uL (130-400); RBC Distribution Width 12.7 % (11.5-14.5); Red Blood Cell (RBC) Count 5.02 mill/uL (4.20-5.40)
[2023-01-31 17:43] LABS: ALT (SGPT) 8 U/L (8-55); AST (SGOT) 15 U/L (5-34); Acetaminophen Less than 10.0 mcg/mL (10.0-30.0); Albumin 4.5 g/dL (3.5-5.0); Alcohol Less than 10 mg/dL (Less than 10); Alkaline Phosphatase 68 U/L (40-110); Anion Gap 12 mmol/L (10-20); BUN (Urea Nitrogen) 13 mg/dL (7.0-18.7); Bilirubin, Total 0.2 mg/dL (0.2-1.2); Calc. Creatinine Clearance 0 mL/min (70-130); Calcium 9.6 mg/dL (7.8-10.44); Carbon Dioxide 20 mmol/L (22-29); Chloride 108 mmol/L (98-107); Estimated GFR 84; Globulin 3.1 g/dL (2.4-3.5); Glucose 96 mg/dL (70-105); Potassium 3.8 mmol/L (3.5-5.1); Protein, Total 7.6 g/dL (6.0-8.3); Salicylate Less than 8.0 mg/dL (15.0-30.0); Sodium 136 mmol/L (136-145)
== END 2023-01-31 20:27 | disposition home or self-care (01) ==
LOC: ERS 16:41
DX: F41.9 Anxiety disorder, unspecified (principal); F32.A Depression, unspecified; D72.829 Elevated white blood cell count, unspecified
CPT/HCPCS: 36415; 80053; 80306; 80307; 81003; 81015; 81025; 84443; 85025; 99284

== ENCOUNTER 2023-06-04 18:32 | Emergency (ER) | payer OTHER ==
[2023-06-04 19:40] LABS: #Eosinphils 0.1 thou/uL (0.0-0.7); #Monocytes 0.5 thou/uL (0.11-0.59); #Neutrophils 7.3 thou/uL (1.40-6.50); %Basophils 0.3 % (0.0-1.0); %Eosinophils 0.9 % (0.0-10.0); %Lymphocytes 32.3 % (21.0-51.0); %Monocytes 3.9 % (0.0-10.0); %Neutrophils 62.4 % (42.0-75.0); Hematocrit 36.6 % (36.0-47.0); Hemoglobin 12.1 g/dL (12.0-16.0); Mean Corpuscular HGB CONC 33.1 g/dL (32.0-36.0); Mean Corpuscular Hemoglobin 23.4 pg (27.0-31.0); Mean Corpuscular Volume 70.8 fl (78.0-98.0); Mean Platelet Volume 11.7 fL (7.4-10.4); Platelet Count 336 10x3/uL (130-400); RBC Distribution Width 14.8 % (11.5-14.5); Red Blood Cell (RBC) Count 5.17 mill/uL (4.20-5.40); White Blood Cell (WBC) Count 11.7 10x3/uL (4.8-10.8)
[2023-06-04 20:05] LABS: ALT (SGPT) 8 U/L (8-55); AST (SGOT) 15 U/L (5-34); Albumin 4.6 g/dL (3.5-5.0); Alkaline Phosphatase 71 U/L (40-110); Anion Gap 9 mmol/L (10-20); BUN (Urea Nitrogen) 11 mg/dL (7.0-18.7); Bilirubin, Total 0.3 mg/dL (0.2-1.2); Calc. Creatinine Clearance 0 mL/min (70-130); Calcium 9.5 mg/dL (7.8-10.44); Carbon Dioxide 20 mmol/L (22-29); Chloride 109 mmol/L (98-107); Estimated GFR 92; Glucose 93 mg/dL (70-105); Protein, Total 7.6 g/dL (6.0-8.3); Sodium 134 mmol/L (136-145)
[2023-06-04 20:07] LABS: Troponin I Less than 0.010 ng/mL (< 0.028)
[2023-06-04 20:12] LABS: CellaVision Operator ID lab.abc; Elliptocytes SLIGHT = 2-5 cells HPF (0-1); Hypochromia SLIGHT = 6-15 cells HPF (0-5); Microcytosis SLIGHT = 6-15 cells HPF (0-5); Platelet Adequacy Comment Platelets Normal; Target Cells SLIGHT = 2-5 cells HPF (0-1)
== END 2023-06-04 20:34 | disposition left against medical advice (07) ==
LOC: ERS 18:32
DX: Z53.21 Procedure and treatment not carried out due to patient leaving prior to being seen by health care provider (principal)
CPT/HCPCS: 36415; 71045; 80053; 84484; 85025; 93005

== ENCOUNTER 2024-03-02 02:52 | Emergency (ER) | payer OTHER | END 2024-03-02 03:20 | disposition left against medical advice (07) | LOC: ERS 02:52 | DX: Z53.21 Procedure and treatment not carried out due to patient leaving prior to being seen by health care provider (principal) ==

== ENCOUNTER 2024-04-16 12:43 | Emergency (ER) | payer OTHER | END 2024-04-16 15:46 | LOC: ERS 12:43 | DX: Z53.21 Procedure and treatment not carried out due to patient leaving prior to being seen by health care provider (principal) ==